=== PATIENT | female | born 1960 | race Caucasian/White ===

== ENCOUNTER → 2016-07-03 | Outpatient (CLI) | payer BC ==
[2016-07-03 13:55] LABS: IMMUNOGLOBULIN E 35.4 IU/ML (<100); IMMUNOGLOBULIN G 984 MG/DL (681-1648); IMMUNOGLOBULIN M 60.9 MG/DL (40-230)
[2016-07-03 14:13] LABS: BASO % 0.1 % (0.0-1.0); EOS # 0.1 K/mm3 (0.0-0.50); LARGE UNSTAINED CELL # 0.1 K/mm3 (0.0-0.4); LARGE UNSTAINED CELL % 0.4 % (0.0-4.0); LYMPH # 0.3 K/mm3 (1.5-4.5); LYMPH % 2.5 % (24.0-44.0); MEAN CORPUSCULAR HEMOGLOBIN 32.2 pg (27.0-33.0); MEAN CORPUSCULAR HGB CONC 32.7 g/dl (32.0-36.5); MEAN CORPUSCULAR VOLUME 98.5 fl (80.0-96.0); MONO # 0.3 K/mm3 (0.0-0.8); MONO % 2.3 % (0.0-5.0); NEUTROPHILS # 10.9 K/mm3 (1.8-7.7); NEUTROPHILS % 93.7 % (36.0-66.0); PLATELET COUNT, AUTOMATED 369 k/mm3 (150-450); RED CELL DISTRIBUTION WIDTH 13.1 % (11.5-14.5); WHITE BLOOD COUNT 11.7 K/mm3 (4.0-10.0)
[2016-07-05 08:06] LABS: IgG SERUM (part of Subclasses) 959 mg/dL (700-1600); IgG Subclass 1 615 mg/dL (422-1292); IgG Subclass 2 298 mg/dL (117-747); IgG Subclass 3 84 mg/dL (41-129); IgG Subclass 4 24 mg/dL (1-291)
[2016-07-05 14:16] LABS: ANTI TETANUS ANTIBODY 0.91 IU/mL (<0.10); IMMUNOGLOBULIN D <0.12 mg/dL (<14.11)
[2016-07-07 00:07] LABS: STREP PNEUMO TYPE 12F <0.3 ug/mL (>1.3); STREP PNEUMO TYPE 18C <0.3 ug/mL (>1.3); STREP PNEUMO TYPE 19A 4.1 ug/mL (>1.3); STREP PNEUMO TYPE 19F 5.5 ug/mL (>1.3); STREP PNEUMO TYPE 23F 3.9 ug/mL (>1.3); STREP PNEUMO TYPE 6B 0.5 ug/mL (>1.3); STREP PNEUMO TYPE 7F 0.5 ug/mL (>1.3); STREP PNEUMO TYPE 9N 1.1 ug/mL (>1.3); STREP PNEUMO TYPE 9V 1.3 ug/mL (>1.3)
== END ==
LOC: M SMT 11:03
PROVIDERS: ATTEND Nurse Practitioner Family
DX: D84.9 Immunodeficiency, unspecified (principal)